=== PATIENT | female | born 1980 | race Caucasian/White ===

== ENCOUNTER 2019-09-09 14:13 | Emergency (ER) | payer MEDICAID ==
[~2019-09-09] VITALS: Ht 157.5 cm; Wt 47.3 kg
[~2019-09-09 14:13] MED LIST: CALC-729 PO; DIVA-81 PO; LEVO500C3 PO; MELA1TAB12 PO; NEOM28OI31 TOP; RISP0.5T74 PO; RISP1TAB13 PO; TRAZ-91 PO
[2019-09-09 14:26] VITALS: BP 110/48
[2019-09-09] MEDS ORDERED: LIDOcaine 1% W/epiNEPHrine 1:200,000 10ml vial IJ ONE (14:45)
[2019-09-09 15:20] LABS: CLARITY,URINE CLOUDY (Clear); COLOR,URINE STRAW (Yellow); GLUCOSE, URINE NEGATIVE (Neg); KETONES,URINE TRACE mg/dl (Neg); LEUKOCYTE ESTERASE ,URINE TRACE (Neg); NITRITES, URINE POSITIVE (Neg); OCCULT BLOOD,URINE LARGE (Neg); PH,URINE 7.5 (4.8-8.0); PROTEIN,URINE NEGATIVE (Neg); UROBILINOGEN,URINE 0.2 E.U/dL (0.2-1.0)
[2019-09-09 15:22] LABS: UA COLLECTION TYPE STRAIGHT CATH
[2019-09-09] MEDS ORDERED: DOCU100C38 PO (15:26)
[2019-09-09] MEDS ORDERED: TEMA30CA PO (15:26)
[2019-09-09 15:31] LABS: BACTERIA,URINE 3+ /HPF (Neg); MUCUS STRANDS NONE SEEN /LPF (Neg); SQUAMOUS EPITHELIAL CELL,UR NONE SEEN /LPF (FEW); WBC,URINE 0-4 /HPF (0-4)
[2019-09-09 15:36] LABS: AMORPHOUS URATES 1+
[2019-09-09] MEDS ORDERED: nitrofuran/nitrofuran macrocrysal 100 MG capsule PO ONE (16:00)
[2019-09-09] MEDS ORDERED: NITR100C6 PO (16:11)
== END 2019-09-09 16:30 ==
LOC: ER 14:14
DX: S01.511A Laceration without foreign body of lip, initial encounter (principal); N39.0 Urinary tract infection, site not specified; F84.0 Autistic disorder; Z79.899 Other long term (current) drug therapy; Z88.8 Allergy status to other drugs, medicaments and biological substances; W19.XXXA Unspecified fall, initial encounter; Y93.89 Activity, other specified; Y92.89 Other specified places as the place of occurrence of the external cause; Y99.8 Other external cause status
CPT/HCPCS: 12011; 81001; 87077; 87088; 87186; 99284

== ENCOUNTER 2021-03-23 11:21 | Emergency (ER) | payer MEDICAID ==
[~2021-03-23] VITALS: Ht 157.5 cm; Wt 51.0 kg
[~2021-03-23 11:21] MED LIST changes: +DOCU100C38 PO; +NITR100C6 PO; +TEMA30CA PO
[2021-03-23 15:22] LABS: URINE HCG NEGATIVE (NEG)
[2021-03-23 15:24] LABS: CLARITY,URINE CLOUDY (Clear); COLOR,URINE YELLOW (Yellow); GLUCOSE, URINE NEGATIVE (Neg); KETONES,URINE TRACE mg/dl (Neg); LEUKOCYTE ESTERASE ,URINE NEGATIVE (Neg); NITRITES, URINE POSITIVE (Neg); OCCULT BLOOD,URINE SMALL (Neg); PROTEIN,URINE NEGATIVE (Neg); UROBILINOGEN,URINE 0.2 E.U/dL (0.2-1.0)
[2021-03-23 15:27] LABS: UA COLLECTION TYPE STRAIGHT CATH
[2021-03-23 15:30] LABS: MUCUS STRANDS FEW /LPF (Neg); SQUAMOUS EPITHELIAL CELL,UR FEW /LPF (FEW); TRANSITIONAL EPI CELLS,URINE FEW /HPF
[2021-03-23 15:32] LABS: BACTERIA,URINE 4+ /HPF (Neg)
[2021-03-23 15:34] LABS: AMORPHOUS PHOSPHATES 1+
[2021-03-23] MEDS ORDERED: cephalexin 250mg capsule PO ONE (16:10)
[2021-03-23] MEDS ORDERED: CEPH-585 PO (16:12)
[2021-03-23 17:02] VITALS: BP 116/84
== END 2021-03-23 17:12 | disposition home or self-care (01) ==
LOC: ER 11:22
DX: N39.0 Urinary tract infection, site not specified (principal); F84.0 Autistic disorder; Z87.440 Personal history of urinary (tract) infections; Z88.8 Allergy status to other drugs, medicaments and biological substances; Z79.899 Other long term (current) drug therapy
CPT/HCPCS: 73590; 73630; 81001; 81025; 87077; 87088; 87186; 93971; 99285

== ENCOUNTER 2021-05-24 12:49 | Emergency (ER) | payer MEDICAID ==
[~2021-05-24] VITALS: Ht 152.4 cm; Wt 49.0 kg
[2021-05-24 13:56] VITALS: BP 123/89
== END 2021-05-24 14:10 | disposition home or self-care (01) ==
LOC: ER 12:50
DX: S01.81XA Laceration without foreign body of other part of head, initial encounter (principal); Z87.440 Personal history of urinary (tract) infections; Z88.8 Allergy status to other drugs, medicaments and biological substances; Z79.899 Other long term (current) drug therapy; Z91.81 History of falling; X58.XXXA Exposure to other specified factors, initial encounter; Y93.89 Activity, other specified; Y92.89 Other specified places as the place of occurrence of the external cause; Y99.8 Other external cause status
CPT/HCPCS: 12001; 99282

== ENCOUNTER 2021-06-23 18:59 | Emergency (ER) | payer MEDICAID ==
[~2021-06-23] VITALS: Ht 157.5 cm; Wt 50.0 kg
[2021-06-23 19:03] VITALS: BP 129/76
--- NOTE | 2021-06-23 19:10 | NUR ---
infoshanti BROWN of patient and lip lac. Concern: pt constantly putting her fingers to her face/mouth, sucking thumb. Question if stitches would work or if pt would just pull them out.
--- NOTE | 2021-06-23 19:39 | NUR ---
caregiver given depends and wipes, as she was asking for items to change pt.
== END 2021-06-23 19:59 | disposition home or self-care (01) ==
LOC: ER 19:00
DX: S01.511A Laceration without foreign body of lip, initial encounter (principal); F79 Unspecified intellectual disabilities; R29.6 Repeated falls; F84.0 Autistic disorder; F42.9 Obsessive-compulsive disorder, unspecified; H54.7 Unspecified visual loss; Z88.8 Allergy status to other drugs, medicaments and biological substances; Z79.899 Other long term (current) drug therapy; W19.XXXA Unspecified fall, initial encounter; Z91.81 History of falling; Y93.89 Activity, other specified; Y92.89 Other specified places as the place of occurrence of the external cause; Y99.8 Other external cause status
CPT/HCPCS: 99284

== ENCOUNTER 2023-08-05 22:57 | Emergency (ER) | payer MEDICAID ==
[~2023-08-05] VITALS: Ht 149.9 cm; Wt 50.9 kg
[2023-08-05 23:16] VITALS: BP 107/62; RESP 16; TEMP 98.7; O2SAT 98
--- NOTE | 2023-08-06 02:04 | NUR ---
PT SEEN, TX AND D/C FROM TRIAGE BY PROVIDER. NO RN ASSIGNED.
== END 2023-08-06 02:03 | disposition home or self-care (01) ==
LOC: ER 22:58
DX: S90.812A Abrasion, left foot, initial encounter (principal); L84 Corns and callosities; F72 Severe intellectual disabilities; Z87.442 Personal history of urinary calculi; Z88.8 Allergy status to other drugs, medicaments and biological substances; Z91.011 Allergy to milk products; Z79.899 Other long term (current) drug therapy; Z79.2 Long term (current) use of antibiotics; X58.XXXA Exposure to other specified factors, initial encounter; Y93.89 Activity, other specified; Y92.89 Other specified places as the place of occurrence of the external cause; Y99.8 Other external cause status
CPT/HCPCS: 99282

== ENCOUNTER 2023-09-24 17:15 | Emergency (ER) | payer MEDICAID ==
[~2023-09-24] VITALS: Ht 157.5 cm; Wt 54.5 kg
[2023-09-24 17:39] VITALS: PULSE 70; RESP 20; TEMP 97.8; O2SAT 99
[2023-09-24] MEDS ORDERED: SULF1TAB49 PO (19:31)
[2023-09-24] MEDS ORDERED: CEPH-585 PO (19:31)
== END 2023-09-24 20:35 | disposition home or self-care (01) ==
LOC: ER 17:16
DX: L03.032 Cellulitis of left toe (principal); Z87.448 Personal history of other diseases of urinary system; Z79.899 Other long term (current) drug therapy; Z88.8 Allergy status to other drugs, medicaments and biological substances; Z91.040 Latex allergy status
CPT/HCPCS: 99283

== ENCOUNTER 2025-01-14 13:05 | Emergency (ER) | payer MEDICAID ==
[~2025-01-14] VITALS: Ht 152.4 cm; Wt 53.2 kg
[2025-01-14 13:08] VITALS: TEMP 97.7
[2025-01-14] MEDS ORDERED: LACO100T2 PO (13:19)
[2025-01-14] MEDS ORDERED: LACO100T4 PO (13:19)
== END 2025-01-14 13:37 | disposition home or self-care (01) ==
LOC: ER 13:06
DX: Z00.8 Encounter for other general examination (principal); Z76.0 Encounter for issue of repeat prescription; Z88.8 Allergy status to other drugs, medicaments and biological substances
CPT/HCPCS: 99281